=== PATIENT | male | born 1945 | race Caucasian/White ===

== ENCOUNTER 2020-10-12 08:29 | Outpatient (CLI) | payer BC | END 2020-10-12 08:30 | disposition home or self-care (01) | LOC: NM 08:29 | PROVIDERS: ATTEND Psychiatry & Neurology Neurology | DX: R26.9 Unspecified abnormalities of gait and mobility (principal); G20 Parkinson's disease; F02.80 Dementia in other diseases classified elsewhere, unspecified severity, without behavioral disturbance, psychotic disturbance, mood disturbance, and anxiety; G23.1 Progressive supranuclear ophthalmoplegia [Steele-Richardson-Olszewski] | CPT/HCPCS: 78803; A9584 ==